=== PATIENT | male | born 1990 | race Caucasian/White ===

== ENCOUNTER 2018-11-04 05:09 | Emergency (ER) | payer OTHER ==
[2018-11-04 05:30] VITALS: BP 116/71; PULSE 70; RESP 18; TEMP 98.4
[2018-11-04] MEDS ORDERED: LIDOCAINE 1% INJ 10MG/ML (20 ML MDV) SQ ONE (05:38)
[2018-11-04] MEDS ORDERED: DIPH,PERTUS(ACELL)TETVAC-LF 0.5 ML VIAL IM ONE (05:52)
--- NOTE | 2018-11-04 05:56 | ED ---
General Adult HPI - General Chief complaint: Wound/Laceration Stated complaint: [facility] laceration on leg Time Seen by Provider: 11/04/18 05:11 Source: patient, RN notes reviewed, old records reviewed Mode of arrival: ambulatory Limitations: no limitations - History of Present Illness Initial comments: 28 male with no significant past medical history presents for evaluation of laceration to the left anterior price. Patient was at work, a steel sheet metal corneal caught on the patient's throat and subsequently lacerated the anterior surface of his left price. There was no metal fragmentation, no concern for foreign body. Patient had dressing applied prior to arrival. No anticoagulation. No other injury. - Related Data Allergies Allergy/AdvReac Type Severity Reaction Status Date / Time No Known Allergies Allergy Verified 11/04/18 05:29 Review of Systems ROS Statement: Those systems with pertinent positive or pertinent negative responses have been documented in the HPI. ROS Other: All systems not noted in ROS Statement are negative. Past Medical History Past Medical History: No Reported History History of Any Multi-Drug Resistant Organisms: None Reported Past Surgical History: Orthopedic Surgery Additional Past Surgical History / Comment(s): left arm surgery, multiple right ear surgeries Past Psychological History: No Psychological Hx Reported Smoking Status: Current every day smoker Past Alcohol Use History: None Reported Past Drug Use History: Marijuana General Exam Limitations: no limitations General appearance: alert, in no apparent distress Head exam: Present: atraumatic, normocephalic Eye exam: Present: normal appearance, PERRL ENT exam: Present: normal exam Neck exam: Present: normal inspection. Absent: tenderness, meningismus Respiratory exam: Present: normal lung sounds bilaterally. Absent: respiratory distress Cardiovascular Exam: Present: regular rate, normal rhythm GI/Abdominal exam: Present: soft. Absent: distended, tenderness Extremities exam: Present: other (3 cm laceration on the anterior mid left price. Partial thickness. No tendon injury.) Course Vital Signs 11/04/18 05:25 Temperature 98.4 F Pulse Rate 70 Respiratory 18 Rate Blood Pressure 116/71 O2 Sat by Pulse 100 Oximetry Procedures - Laceration Laceration #1 Consent Obtained: verbal consent Indication: laceration Site: lower extremity Description: linear Depth: simple, single layer Anesthetic Used: lidocaine 1% Anesthesia Technique: local infiltration Amount (mls): 3 Pre-repair: wound explored, irrigated extensively, deep structures intact Type of Sutures: nylon Size of Sutures: 5-0 Number of Sutures: 4 Technique: simple, interrupted Patient Tolerated Procedure: well Additional Comments: Wound copiously irrigated. Patient neurovascularly intact. No tendon injury. Medical Decision Making - Medical Decision Making 28-year-old male with laceration to the anterior price. This is repaired in the emergency department. Tetanus updated. No concern for pneumonia or melena, no concern for foreign body. Patient discharged home with outpatient follow-up. Please monitor for signs of infection. Please return for suture removal in 10- 14 days. Disposition Clinical Impression: Laceration Disposition: HOME SELF-CARE Condition: Good Instructions (If sedation given, give patient instructions): Laceration (ED), Care For Your Stitches (ED) Additional Instructions: Please monitor for signs of infection, return for suture removal in 10-14 days. Is patient prescribed a controlled substance at d/c from ED?: No Referrals: Kassie Muhammad MD [Primary Care Provider] - 1-2 days Time of Disposition: 05:56
== END 2018-11-04 06:26 | disposition home or self-care (01) ==
LOC: EC 05:09
DX: S81.812A Laceration without foreign body, left lower leg, initial encounter (principal); Z23 Encounter for immunization; F17.200 Nicotine dependence, unspecified, uncomplicated; W26.8XXA Contact with other sharp object(s), not elsewhere classified, initial encounter; Y92.69 Other specified industrial and construction area as the place of occurrence of the external cause; Y99.0 Civilian activity done for income or pay
CPT/HCPCS: 90715; 99283; 12002; 90471; J2001

== ENCOUNTER 2020-01-12 23:24 | Emergency (ER) | payer OTHER ==
[2020-01-12] MEDS ORDERED: PROPARACAINE 0.5% OPHTH DROPS 15 ML BTL LEFT EYE STA (23:36)
[2020-01-12] MEDS ORDERED: FLUORESCEIN STRIPS 1 MG STRIP RIGHT EYE ONE (23:36)
[2020-01-12] MEDS: DIPH,PERTUS(ACELL)TETVAC-LF 0.5 ML VIAL IM ONE ×2 (23:43→23:46)
[2020-01-13] MEDS ORDERED: ERYTHROMYCIN 5 MG/GM OPHTH OINT 3.5 GM TUBE RIGHT EYE STA (01:16)
--- NOTE | 2020-01-13 01:51 | ED ---
General Adult HPI - General Chief complaint: Eye Problems Stated complaint: [facility]HS FB in eye Time Seen by Provider: 01/12/20 23:36 Source: patient, RN notes reviewed, old records reviewed Mode of arrival: ambulatory Limitations: no limitations - History of Present Illness Initial comments: 29-year-old male patient menses for evaluation of foreign body in right eye. Patient reports that he was using a small lower at work to clean off his work station where there is no stating that he felt something go in his eye. Denies any changes in vision. Denies use of contact lenses. Denies any other complaints. Systemic: Pt denies fatigue, fever/chills, rash. Pt denies weakness, night sweats, weight loss. Neuro: Pt denies headache, syncope or pre-syncope. HEENT: Pt denies ocular discharge or irritation, otalgia, rhinorrhea, pharyngitis or notable lymphadenopathy. Cardiopulmonary: Pt denies chest pain, SOB, heart palpitations, dyspnea on e xertion. Abdominal/GI: Pt denies abdominal pain, n/v/d. : Pt denies dysuria, burning w/ urination, frequency/urgency. Denies new onset urinary or bowel incontinence. MSK: Pt denies myalgia, loss of strength or function in extremities. Neuro: Pt denies new onset weakness, paresthesias. - Related Data Allergies Allergy/AdvReac Type Severity Reaction Status Date / Time No Known Allergies Allergy Verified 01/12/20 23:33 Review of Systems ROS Statement: Those systems with pertinent positive or pertinent negative responses have been documented in the HPI. ROS Other: All systems not noted in ROS Statement are negative. Past Medical History Past Medical History: No Reported History History of Any Multi-Drug Resistant Organisms: None Reported Past Surgical History: Orthopedic Surgery Additional Past Surgical History / Comment(s): left arm surgery, multiple right ear surgeries Past Psychological History: No Psychological Hx Reported Smoking Status: Current every day smoker Past Alcohol Use History: None Reported Past Drug Use History: Marijuana General Exam - General Exam Comments Initial Comments: Constitutional: NAD, AOX3, Pt has pleasant affect. HEENT: NC/AT, trachea midline, neck supple, no lymphadenopathy. External ears appear normal, without discharge. Mucous membranes moist. Eyes PERRLA, EOM intact. There is no scleral icterus. No pallor noted. Small foreign body noted to right eye at 7oclock. Removed with sterile q tip and needle. IOP average of 10 bilaterally. Florescein stain revealed small corneal abrasion. Cardiopulmonary: RRR, no murmurs, rubs or gallops, no JVD noted. Lungs CTAB in anterior and posterior jeronimo. No peripheral edema. Neuro: CN II-XII grossly intact. No nuchal rigidity. 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 Use eye ointment half and ribbon of erythromycin every 6 hours. Follow-up with primary care provider in 1-2 days. Return to ER if condition worsens. Is patient prescribed a controlled substance at d/c from ED?: No Referrals: Kassie Muhammad MD [Primary Care Provider] - 1-2 days Lorenza Goncalves MD [STAFF PHYSICIAN] - 1-2 days
[2020-01-13] MEDS ORDERED: ACET/COD 300 MG/30 MG STARTER PACK 6 TAB BTL PO STA (01:55)
[2020-01-13 02:09] VITALS: BP 141/74; PULSE 77; RESP 15; TEMP 98.7
== END 2020-01-13 02:06 | disposition home or self-care (01) ==
LOC: EC 23:24
DX: T15.01XA Foreign body in cornea, right eye, initial encounter (principal); F17.200 Nicotine dependence, unspecified, uncomplicated; Y93.E9 Activity, other interior property and clothing maintenance; Y92.69 Other specified industrial and construction area as the place of occurrence of the external cause; Y99.0 Civilian activity done for income or pay
CPT/HCPCS: 65220; 90715; 99283

== ENCOUNTER 2020-09-23 06:37 | Emergency (ER) | payer OTHER ==
[2020-09-23 06:48] VITALS: BP 119/70; PULSE 63; RESP 18; TEMP 98.5
[2020-09-23] MEDS ORDERED: FLUORESCEIN STRIPS 1 MG STRIP LEFT EYE STA (06:50)
[2020-09-23] MEDS ORDERED: PROPARACAINE 0.5% OPHTH DROPS 15 ML BTL LEFT EYE STA (06:50)
[2020-09-23] MEDS ORDERED: ERYTHROMYCIN 5 MG/GM OPHTH OINT 1 GM TUBE LEFT EYE STA (07:11)
--- NOTE | 2020-09-23 07:23 | ED ---
General Adult HPI - General Chief complaint: Eye Problems Stated complaint: Eye Injury,IHS Time Seen by Provider: 09/23/20 06:50 Source: patient Mode of arrival: ambulatory Limitations: no limitations - History of Present Illness Initial comments: 30-year-old male presents to the emergency room for a chief complaint of left eye irritation. 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 Patient states around 5 hours ago he was at work and noticed he had something in his eye. He states it does feel a little bit irritated. Patient states this has happened before from work. Patient states he is up-to-date on tetanus within the last 1-2 years from a recent laceration. Patient denies visual changes. Denies contact use.Patient has no other complaints at this time including shortness of breath, chest pain, abdominal pain, nausea or vomiting, headache, or visual changes. - Related Data Previous Rx's Medication Instructions Recorded Erythromycin Ophth Oint [Romycin 1 applic RIGHT EYE QID 7 Days #1 gm 09/23/20 Ophth Oint] Allergies Allergy/AdvReac Type Severity Reaction Status Date / Time No Known Allergies Allergy Verified 09/23/20 06:48 Review of Systems ROS Statement: Those systems with pertinent positive or pertinent negative responses have been documented in the HPI. ROS Other: All systems not noted in ROS Statement are negative. Past Medical History Past Medical History: No Reported History History of Any Multi-Drug Resistant Organisms: None Reported Past Surgical History: Orthopedic Surgery Additional Past Surgical History / Comment(s): left arm surgery, multiple right ear surgeries Past Psychological History: No Psychological Hx Reported Smoking Status: Current every day smoker Past Alcohol Use History: None Reported Past Drug Use History: Marijuana General Exam Limitations: no limitations General appearance: alert, in no apparent distress Head exam: Present: atraumatic, normocephalic, normal inspection Eye exam: Present: PERRL, EOMI, conjunctival injection (Erythema noted of the conjunctiva of the left eye), other (Small foreign body noted at about 9:00 of the left eye). Absent: scleral icterus, periorbital swelling ENT exam: Present: normal exam, mucous membranes moist Neck exam: Present: normal inspection, full ROM. Absent: tenderness, meningismus, lymphadenopathy Respiratory exam: Present: normal lung sounds bilaterally. Absent: respiratory distress, wheezes, rales, rhonchi, stridor Cardiovascular Exam: Present: regular rate, normal rhythm, normal heart sounds. Absent: systolic murmur, diastolic murmur, rubs, gallop, clicks GI/Abdominal exam: Present: soft, normal bowel sounds. Absent: distended, tenderness, guarding, rebound, rigid Course Vital Signs 09/23/20 06:43 Temperature 98.5 F Pulse Rate 63 Respiratory 18 Rate Blood Pressure 119/70 O2 Sat by Pulse 96 Oximetry Procedures - Forgein Body Removal Eye Site: Left Anesthetic Used: Proparacaine Eye Exam Technique: Agudelo Lamp Foreign Body Suspected: Metal Forgein Body Removal Technique: Cotton Swab, Irrigation, Algerbrush Remaining Debris: Yes (rust ring) Patient Tolerated: no complications Medical Decision Making - Medical Decision Making Patient does have a foreign body noted in the cornea of the left eye at about 9:00. I attempted to remove this using cotton swab, unsuccessful. I used IV catheter without difficulty. Foreign body was removed. Eye was flushed. Lids were flipped, no remaining foreign bodies. There was remaining rust ring. I did attempt to remove this with an [place] brush. It was only able to remove small amount because of the unexpected depth of the rust ring. The eye was then stained with fluorescein stain and visualized with the Wood's lamp, negative Orville sign. No additional foreign bodies. Visual acuity 20/20 both eyes. At this time patient can be discharged home to follow up with ophthalmology. I did discuss the importance of following up with ophthalmology, he will call today. He will be started on erythromycin ointment. He will return for any worsening symptoms. Disposition Clinical Impression: Corneal foreign body, Corneal rust ring of left eye Disposition: HOME SELF-CARE Condition: Good Instructions (If sedation given, give patient instructions): Eye Foreign Body (ED) Additional Instructions: Please use antibiotic ointment every 6 hours for 7 days. Follow up closely with ophthalmology for rust ring removal. You need to call them today. Return to the emergency room for any worsening symptoms. Prescriptions: Erythromycin Ophth Oint [Romycin Ophth Oint] 1 applic RIGHT EYE QID 7 Days #1 gm Is patient prescribed a controlled substance at d/c from ED?: No Referrals: Kassie Muhammad MD [Primary Care Provider] - 1-2 days Deanne Britt MD [STAFF PHYSICIAN] - 1-2 days Time of Disposition: 07:19
== END 2020-09-23 07:32 | disposition home or self-care (01) ==
LOC: EC 06:37
DX: T15.02XA Foreign body in cornea, left eye, initial encounter (principal); F17.200 Nicotine dependence, unspecified, uncomplicated; W20.8XXA Other cause of strike by thrown, projected or falling object, initial encounter; Y92.69 Other specified industrial and construction area as the place of occurrence of the external cause; Y99.0 Civilian activity done for income or pay
CPT/HCPCS: 65220; 99283

== ENCOUNTER 2020-11-28 14:38 | Emergency (ER) | payer OTHER ==
[2020-11-28 14:47] VITALS: BP 127/52; PULSE 91; RESP 16; TEMP 98.7
[2020-11-28] MEDS ORDERED: PROPARACAINE 0.5% OPHTH DROPS 15 ML BTL RIGHT EYE STA (15:03)
--- NOTE | 2020-11-28 15:19 | ED ---
ENT HPI - General Chief complaint: ENT Stated complaint: eye problem Time Seen by Provider: 11/28/20 14:50 Source: patient Mode of arrival: ambulatory Limitations: no limitations - History of Present Illness Initial comments: Patient is a 30-year-old male presenting to the emergency Department with complaints of irritation to his right eye. Patient states he was driving today around noon when he felt like something flew into his right eye. He states it's been irritated since. He denies any injuries or trauma to his eye. He does not wear contacts. 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 He denies any sharp eye pain, no blurry vision, no vision loss. He has no further complaints. - Related Data Previous Rx's Medication Instructions Recorded Erythromycin Ophth Oint [Romycin 1 applic RIGHT EYE QID 7 Days #1 gm 09/23/20 Ophth Oint] Erythromycin Ophth Oint [Romycin 1 applic RIGHT EYE QID 3 Days #1 11/28/20 Ophth Oint] tube Allergies Allergy/AdvReac Type Severity Reaction Status Date / Time No Known Allergies Allergy Verified 11/28/20 14:47 Review of Systems ROS Statement: Those systems with pertinent positive or pertinent negative responses have been documented in the HPI. ROS Other: All systems not noted in ROS Statement are negative. Past Medical History Past Medical History: No Reported History History of Any Multi-Drug Resistant Organisms: None Reported Past Surgical History: Orthopedic Surgery Additional Past Surgical History / Comment(s): left arm surgery, multiple right ear surgeries Past Psychological History: No Psychological Hx Reported Smoking Status: Current every day smoker Past Alcohol Use History: None Reported Past Drug Use History: Marijuana General Exam - General Exam Comments Initial Comments: GENERAL: Patient is well-developed and well-nourished. Patient is nontoxic and in no acute distress. HEAD: Atraumatic, normocephalic. EYES: Pupils equal round and reactive to light, extraocular movements intact, sclera anicteric, conjunctiva are normal. Eyelids were unremarkable. There is a small black dot, foreign object noted in the right eye, 6 o'clock position. ENT: Nares patent, oropharynx clear without exudates. Moist mucous membranes. NECK: Normal range of motion, supple without lymphadenopathy or JVD. LUNGS: Unlabored respirations. Breath sounds clear to auscultation bilaterally and equal. No wheezes rales or rhonchi. HEART: Regular rate and rhythm without murmurs, rubs or gallops. ABDOMEN: Soft, nontender, normoactive bowel sounds. No guarding, no rebound. No masses appreciated. : Deferred MUSCULOSKELETAL: Normal extremities with adequate strength and normal range of motion, no pitting or edema. No clubbing or cyanosis. NEUROLOGICAL: Patient is alert and oriented x 3. Motor and sensory are also intact. Cranial nerves II through XII grossly intact. Symmetrical smile. Normal speech, normal gait. PSYCH: Normal mood, normal affect. SKIN: Warm, Dry, normal turgor, no rashes or lesions noted. Limitations: no limitations Course Vital Signs 11/28/20 14:45 Temperature 98.7 F Pulse Rate 91 Respiratory 16 Rate Blood Pressure 127/52 O2 Sat by Pulse 97 Oximetry Procedures - Forgein Body Removal Eye Site: Right Anesthetic Used: Proparacaine Foreign Body Suspected: Other Forgein Body Removal Technique: Cotton Swab Remaining Debris: No Patient Tolerated: well Medical Decision Making - Medical Decision Making Patient is a 22-year-old male here for irritation of his right eye. He feels like there is a foreign body and the right eye for the last few hours. He states he felt like something flew in his eye when he was driving or could be from the steel factory he works in. Exam revealed a very small black foreign object in the 6 o'clock position of the right eye. I did use proparacaine, easily removed with a cotton swab. No other abnormality on exam. Patient will be given antibiotic ointment for abrasion to the eye. He is stable for discharge and he is in agreement with this plan of care. Follow up with his eye doctor symptoms persist. Disposition Clinical Impression: Foreign body of right eye Disposition: HOME SELF-CARE Condition: Stable Instructions (If sedation given, give patient instructions): Eye Foreign Body (ED) Additional Instructions: Please return to the Emergency Department if symptoms worsen or any other concerns. Use antibiotic ointment for 3 days as prescribed. Follow-up with your eye doctor if symptoms persist. Prescriptions: Erythromycin Ophth Oint [Romycin Ophth Oint] 1 applic RIGHT EYE QID 3 Days #1 tube Is patient prescribed a controlled substance at d/c from ED?: No Referrals: None,Stated [Primary Care Provider] - 1-2 days Time of Disposition: 15:19
== END 2020-11-28 15:29 | disposition home or self-care (01) ==
LOC: EC 14:38
DX: T15.91XA Foreign body on external eye, part unspecified, right eye, initial encounter (principal); F17.200 Nicotine dependence, unspecified, uncomplicated
CPT/HCPCS: 65220; 99282

== ENCOUNTER 2020-12-31 17:55 | Emergency (ER) | payer OTHER ==
[2020-12-31 17:59] VITALS: TEMP 97.8
[2020-12-31] MEDS ORDERED: KETOROLAC 15 MG/ML 1 ML VIAL IVP STA (18:11)
--- NOTE | 2020-12-31 18:18 | ED ---
Chest Pain HPI - General Chief Complaint: Chest Pain Stated Complaint: chest pain Time Seen by Provider: 12/31/20 17:58 Source: patient, RN notes reviewed Mode of arrival: ambulatory Limitations: no limitations - History of Present Illness Initial Comments: This is a 30-year-old male with a benign past medical history who does smoke about 1 pack cigarettes per day who states he had the onset about one week ago been intermittent episodes of upper chest and shoulder pain. He states that sharp and aching nature it is at the worst moderate in severity he has some shortness of breath sometimes with him without it. He has no known heart or lung disease no cough fevers chills nausea vomiting sweats no family history of any heart disease at early age. No other current complaints or modifying factors. 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 is right-handed Complaint: chest pain - Related Data Previous Rx's Medication Instructions Recorded Erythromycin Ophth Oint [Romycin 1 applic RIGHT EYE QID 7 Days #1 gm 09/23/20 Ophth Oint] Erythromycin Ophth Oint [Romycin 1 applic RIGHT EYE QID 3 Days #1 11/28/20 Ophth Oint] tube Ibuprofen 800 mg PO Q6HR PRN #20 tablet 12/31/20 Orphenadrine [Norflex] 100 mg PO Q12H #7 tablet.er 12/31/20 Allergies Allergy/AdvReac Type Severity Reaction Status Date / Time No Known Allergies Allergy Verified 12/31/20 17:59 Review of Systems ROS Statement: Those systems with pertinent positive or pertinent negative responses have been documented in the HPI. ROS Other: All systems not noted in ROS Statement are negative. EKG Findings - EKG Results: EKG: interpreted by MALCOM LEE, sinus rhythm, normal axis, normal QRS, normal ST/T, no acute changes (Normal-appearing EKG ventricular rate 67 ID interval 156 QRS 96 QT since QTC 386/407) Past Medical History Past Medical History: No Reported History History of Any Multi-Drug Resistant Organisms: None Reported Past Surgical History: Orthopedic Surgery Additional Past Surgical History / Comment(s): left arm surgery, multiple right ear surgeries Past Psychological History: No Psychological Hx Reported Smoking Status: Current every day smoker Past Alcohol Use History: None Reported Past Drug Use History: Marijuana General Exam - General Exam Comments Initial Comments: This is a well-developed asthenic appearing male was awake alert oriented 3 Limitations: no limitations General appearance: alert, in no apparent distress Head exam: Present: atraumatic, normocephalic, normal inspection Eye exam: Present: normal appearance, PERRL, EOMI. Absent: scleral icterus, conjunctival injection, periorbital swelling ENT exam: Present: normal exam, mucous membranes moist Neck exam: Present: normal inspection, full ROM, other (No stridor JVD or bruits). Absent: tenderness, meningismus, lymphadenopathy Respiratory exam: Present: normal lung sounds bilaterally, chest wall tenderness (Reproducible tenderness to palpation along the upper chest wall and anterior shoulders bilaterally). Absent: respiratory distress, wheezes, rales, rhonchi, stridor Cardiovascular Exam: Present: regular rate, normal rhythm, normal heart sounds. Absent: systolic murmur, diastolic murmur, rubs, gallop, clicks GI/Abdominal exam: Present: soft, normal bowel sounds. Absent: distended, tenderness, guarding, rebound, rigid Extremities exam: Present: normal inspection, full ROM, normal capillary refill. Absent: tenderness, pedal edema, joint swelling, calf tenderness Back exam: Present: normal inspection Neurological exam: Present: alert, oriented X3, CN II-XII intact Psychiatric exam: Present: normal affect, normal mood Skin exam: Present: warm, dry, intact, normal color. Absent: rash Course Vital Signs 12/31/20 12/31/20 12/31/20 17:57 18:30 19:22 Temperature 97.8 F Pulse Rate 75 70 53 L Respiratory 18 18 16 Rate Blood Pressure 121/76 88/68 104/66 O2 Sat by Pulse 99 100 100 Oximetry - Reevaluation(s) Reevaluation #1: 12/31/20 18:18 The patient did have a apparent vagal episode during the IV start. Chest Pain MDM - MDM Reevaluation patient finds he is feeling improved at this time. X-rays are negative. The presentation is consistent with a musculoskeletal origin of the chest pain. He did have a long discussion regarding the findings patient be placed on appropriate medication he will be discharged. Disposition Clinical Impression: Costochondritis, Chest wall syndrome Disposition: HOME SELF-CARE Condition: Good Instructions (If sedation given, give patient instructions): Costochondritis (ED) Prescriptions: Ibuprofen 800 mg PO Q6HR PRN #20 tablet PRN Reason: Pain Orphenadrine [Norflex] 100 mg PO Q12H #7 tablet.er Is patient prescribed a controlled substance at d/c from ED?: No Referrals: None,Stated [Primary Care Provider] - 1-2 days
[2020-12-31 18:32] LABS: Glucose,Whole Blood 113 mg/dL (75-99)
[2020-12-31 18:34] LABS: Basophils # (A) 0.1 k/uL (0-0.2); Basophils % (A) 1 %; Eosinophils # (A) 0.8 k/uL (0-0.7); Eosinophils % (A) 6 %; HCT 45.5 % (39.0-53.0); HGB 15.6 gm/dL (13.0-17.5); Lymphocytes # (A) 3.1 k/uL (1.0-4.8); Lymphocytes % (A) 22 %; MCH 31.2 pg (25.0-35.0); MCHC 34.3 g/dL (31.0-37.0); Mean Platelet Volume 10.7; Monocytes # (A) 0.8 k/uL (0-1.0); Monocytes % (A) 6 %; Neutrophils # (A) 9.3 k/uL (1.3-7.7); Neutrophils % (A) 65 %; Platelet Count 179 k/uL (150-450); RDW 12.2 % (11.5-15.5); WBC 14.2 k/uL (3.8-10.6)
[2020-12-31 18:50] LABS: ALT 26 U/L (4-49); AST 35 U/L (17-59); African American GFR (CKD) >90 (>60 ml/min/1.73 sqM); Albumin 4.4 g/dL (3.5-5.0); Alkaline Phosphatase 49 U/L (38-126); Anion Gap 7 mmol/L; Blood Urea Nitrogen 9 mg/dL (9-20); Calcium 9.6 mg/dL (8.4-10.2); Carbon Dioxide 29 mmol/L (22-30); Chloride 102 mmol/L (98-107); Creatine Kinase 97 U/L (55-170); Glucose 101 mg/dL (74-99); Magnesium 1.8 mg/dL (1.6-2.3); Non-African American GFR(CKD) >90 (>60 ml/min/1.73 sqM); Potassium 3.8 mmol/L (3.5-5.1); Sodium 138 mmol/L (137-145); Total Bilirubin 0.5 mg/dL (0.2-1.3); Total Protein 6.4 g/dL (6.3-8.2)
--- NOTE | 2020-12-31 18:53 | XR ---
EXAMINATION TYPE: XR chest 2V DATE OF EXAM: 12/31/2020 COMPARISON: 10/30/2011. HISTORY: Chest pain. TECHNIQUE: Frontal and lateral views of the chest are obtained. FINDINGS: There is no focal air space opacity, pleural effusion, or pneumothorax seen. The cardiac silhouette size is within normal limits. The osseous structures are intact. IMPRESSION: No acute cardiopulmonary process.
[2020-12-31 18:56] LABS: D-Dimer <0.17 mg/L FEU (<0.60); INR 1.1 (<1.2); Partial Thromboplastin Time 23.7 sec (22.0-30.0); Prothrombin Time 11.5 sec (9.0-12.0)
[2020-12-31 19:23] VITALS: PULSE 53
[2020-12-31 19:51] VITALS: BP 102/62; RESP 18
== END 2020-12-31 19:51 | disposition home or self-care (01) ==
LOC: EC 17:55
DX: M94.0 Chondrocostal junction syndrome [Tietze] (principal); F17.200 Nicotine dependence, unspecified, uncomplicated; F12.90 Cannabis use, unspecified, uncomplicated
CPT/HCPCS: 36415; 93005; 85379; 83880; 80053; 82550; 83735; 84484; 85025; 85610; 85730; 71046; 99285; 96374; J1885

== ENCOUNTER → 2022-04-19 | Outpatient (CLI) | payer OTHER ==
--- NOTE | 2022-04-20 08:49 | US ---
EXAMINATION TYPE: US thyroid st tissue head/neck DATE OF EXAM: 04/19/2022 COMPARISON: NONE CLINICAL HISTORY: R59.0 ANTERIOR CERVICAL ADENOPATHY. 2 lumps left neck multiple lymph nodes left neck, largest = 2.0 x 0.5 x 0.9cm IMPRESSION: 1. Multiple left neck nodes. CT soft tissue neck performed the additional workup would be of benefit.
--- NOTE | 2022-04-20 08:50 | US ---
EXAMINATION TYPE: US groin RT DATE OF EXAM: 04/19/2022 COMPARISON: None at this location. CLINICAL HISTORY: R19.09 LUMP IN GROIN. Lump right groin for 6-7 months, getting smaller Lymph nodes right groin, largest = 1.7 x 0.5 x 1.4cm IMPRESSION: 1. Right inguinal lymph node
== END | disposition home or self-care (01) ==
LOC: RADUSWWP 15:23
PROVIDERS: ATTEND Internal Medicine
DX: R19.09 Other intra-abdominal and pelvic swelling, mass and lump (principal)
CPT/HCPCS: 76536

== ENCOUNTER → 2022-04-27 | Outpatient (CLI) | payer OTHER ==
--- NOTE | 2022-04-27 13:03 | CT ---
EXAMINATION TYPE: CT soft tissue neck w con DATE OF EXAM: 04/27/2022 11:51 AM COMPARISON: None HISTORY: Enlarged lymph nodes CT DLP: 429 mGycm Automated exposure control for dose reduction was used. CONTRAST: CT scan of the neck is performed following with IV Contrast, patient injected with 70 ml mL of Isovue 300. Axial images are obtained, coronal and sagittal reformatted images are reviewed. Findings: The thyroid gland is not enlarged and there are no focal masses. The larynx including the thyroid, arytenoid, cricoid cartilages as well as the vocal cords are normal and symmetric without laryngeal mass. The tongue base, epiglottis, aryepiglottic folds, piriform sinuses and vallecula are normal and symme tric. There is no oral or nasal pharyngeal or parapharyngeal or pharyngeal soft tissue mass or enhancement. The submandibular glands and parotid glands are normal and symmetric. The great vessels of the neck are normal. There is no adenopathy or abscess within the neck. Visualized osseous structures are intact. IMPRESSION: No significant abnormality seen. Mild chronic inflammatory change in the right maxillary sinus.
== END | disposition home or self-care (01) ==
LOC: RADCTMAIN 11:19
PROVIDERS: ATTEND Internal Medicine
DX: J32.0 Chronic maxillary sinusitis (principal)
CPT/HCPCS: 70491; Q9967

== ENCOUNTER → 2024-01-07 | Outpatient (CLI) | payer OTHER ==
--- NOTE | 2024-01-07 16:04 | US ---
EXAMINATION TYPE: US groin RT DATE OF EXAM: 01/07/2024 COMPARISON: 04/19/2022 CLINICAL INDICATION: Male, 33 years old with history of R10.31 RT GROIN PAIN; Patient has felt lump x a couple months within the right groin. TECHNIQUE: Scanned right groin at patient's area of concern. FINDINGS: Lesion in the area of patient's concern possibly flattened lymph node given prior imaging showing a lymph node in this area. Area seen at patient's area of concern: 2.4 x 1.1 x 0.3 cm. IMPRESSION: Lesion in the area of patient's concern possibly flattened lymph node given prior imaging showing a lymph node in this area. Consider palpable marker placement with CT pelvis for confirmatio n.
== END | disposition home or self-care (01) ==
LOC: RADUSWWP 14:46
PROVIDERS: ATTEND Family Medicine
DX: R10.31 Right lower quadrant pain (principal)

== ENCOUNTER → 2024-01-13 | Outpatient (CLI) | payer OTHER ==
--- NOTE | 2024-01-13 12:45 | CT ---
EXAMINATION TYPE: CT pelvis w con CT DLP: 391 mGycm, Automated exposure control for dose reduction was used. DATE OF EXAM: 01/13/2024 9:24 AM COMPARISON: 01/07/2024 CLINICAL INDICATION:Male, 33 years old with history of R10.31 Right groin pain R19.09 right groin mas s; RT groin pain, RT groin mass TECHNIQUE: Axial CT pelvis w con;Sagittal and coronal reformats were created on a separate workstati on. Contrast used:100 mL of Isovue 300 with IV Contrast, (none if empty) Oral contrast used: without Oral Contrast (none if empty) FINDINGS: BLADDER: Unremarkable REPRODUCTIVE: Unremarkable. ABDOMEN & PELVIS STOMACH AND BOWEL: No evidence of bowel obstruction. PERITONEUM/RETROPERITONEUM: No evidence of pneumoperitoneum or free fluid. VASCULATURE: No evidence of aortic aneurysm. MUSCULOSKELETAL: No acute osseous abnormalities LYMPH NODES: No gross evidence for lymphadenopathy. SOFT TISSUE/ABDOMINAL WALL: No palpable marker was placed no suspicious masses or organizing fluid co llections identified no enlarged lymph nodes. IMPRESSION: No palpable marker was placed as recommended on prior ultrasound 01/07/2024. No evidence of acute process. No evidence for mass or lymphadenopathy. No inguinal hernia. No acute p elvic process.
== END | disposition home or self-care (01) ==
LOC: RADCTMAIN 08:45
PROVIDERS: ATTEND Family Medicine
DX: R10.31 Right lower quadrant pain (principal); R19.09 Other intra-abdominal and pelvic swelling, mass and lump
CPT/HCPCS: 72193; Q9967

== ENCOUNTER 2024-05-06 22:17 | Emergency (ER) | payer OTHER ==
[2024-05-06 22:23] VITALS: RESP 18
[2024-05-06] MEDS: ACETAMINOPHEN TAB 325 MG TAB PO STA (23:34)
[2024-05-06] MEDS: IBUPROFEN 600 MG TAB PO STA (23:34)
[2024-05-07 01:07] VITALS: TEMP 97.8
--- NOTE | 2024-05-07 01:21 | US ---
EXAM: US Abdomen Limited CLINICAL HISTORY: US Reason: painful mass TECHNIQUE: Real-time ultrasound of the abdomen with image documentation. COMPARISON: No relevant prior studies available. FINDINGS: Soft tissues: There is a smooth oval structure in the subcutaneous tissues of the right groin measuring 5 mm short axis diameter consistent with a lymph node. No hernia is identified. IMPRESSION: There is a smooth oval structure in the subcutaneous tissues of the right groin measuring 5 mm short axis diameter consistent with a lymph node. No abnormal fluid collection is seen.
--- NOTE | 2024-05-07 01:58 | ED ---
Male Urogenital HPI - General Chief complaint: Urogenital Stated complaint: Lump on Groin Time Seen by Provider: 05/06/24 22:28 Source: patient Mode of arrival: ambulatory - History of Present Illness Initial comments: 33-year-old transgender female presenting with chief complaint of right groin pain. Patient reports a painful bump to the right groin. It has been there for the last week. Pain comes and goes can get up to an 8 out of 10. Patient has had a bump similar to this previously, had ultrasound and CT performed which only showed enlarged lymph node. No fever. No dysuria or discharge. No abdominal pain. - Related Data Previous Rx's Medication Instructions Recorded Erythromycin Ophth Oint [Romycin 1 applic RIGHT EYE QID 7 Days #1 gm 09/23/20 Ophth Oint] Erythromycin Ophth Oint [Romycin 1 applic RIGHT EYE QID 3 Days #1 11/28/20 Ophth Oint] tube Ibuprofen 800 mg PO Q6HR PRN #20 tablet 12/31/20 Orphenadrine [Norflex] 100 mg PO Q12H #7 tablet.er 12/31/20 Cephalexin [Keflex] 500 mg PO Q6HR 7 Days #28 cap 05/07/24 Sulfamethox-Tmp 800-160Mg [Bactrim 1 tab PO Q12HR 7 Days #14 tab 05/07/24 DS 800-160 mg] Allergies Allergy/AdvReac Type Severity Reaction Status Date / Time No Known Allergies Allergy Verified 12/31/20 17:59 Review of Systems ROS Statement: Those systems with pertinent positive or pertinent negative responses have been documented in the HPI. ROS Other: All systems not noted in ROS Statement are negative. Past Medical History Past Medical History: No Reported History Additional Past Medical History / Comment(s): hrt History of Any Multi-Drug Resistant Organisms: None Reported Past Surgical History: Orthopedic Surgery Additional Past Surgical History / Comment(s): left arm surgery, multiple right ear surgeries Past Psychological History: No Psychological Hx Reported Smoking Status: Current every day smoker Past Alcohol Use History: None Reported Past Drug Use History: Marijuana General Exam General appearance: alert, in no apparent distress Head exam: Present: atraumatic, normocephalic, normal inspection Eye exam: Present: normal appearance, EOMI Neck exam: Present: normal inspection. Absent: meningismus Respiratory exam: Absent: respiratory distress Cardiovascular Exam: Present: regular rate exam: Present: other (Tender swollen bump just superior to the genitals) Neurological exam: Present: alert, oriented X3 Psychiatric exam: Present: normal affect, normal mood Skin exam: Present: warm, dry Course Vital Signs 05/06/24 05/07/24 05/07/24 22:18 01:06 02:08 Temperature 98.0 F 97.8 F 97.8 F Pulse Rate 117 H 78 89 Respiratory 18 18 18 Rate Blood Pressure 117/75 118/78 122/82 O2 Sat by Pulse 98 98 99 Oximetry Medical Decision Making - Medical Decision Making Was pt. sent in by a medical professional or institution (, PA, UNIFOR[employer] SALES REPRESENTATIVE, urgent care, hospital, or usp...) When possible be specific @ -No Did you speak to anyone other than the patient for history (EMS, parent, family, police, friend...)? What history was obtained from this source @ -No Did you review nursing and triage notes (agree or disagree)? Why? @ -I reviewed and agree with nursing and triage notes Were old charts reviewed (outside hosp., previous admission, EMS record, old EKG, old radiological studies, urgent care reports/EKG's, usp records)? Report findings @ -No old charts were reviewed Differential Diagnosis (chest pain, altered mental status, abdominal pain women, abdominal pain men, vaginal bleeding, weakness, fever, dyspnea, syncope, headache, dizziness, GI bleed, back pain, seizure, CVA, palpatations, mental health, musculoskeletal)? @ -Differential includes abscess, cyst, cellulitis, enlarged lymph node, this is not an all-inclusive list EKG interpreted by me (3pts min.). @ -As above X-rays interpreted by me (1pt min.). @ -None done CT interpreted by me (1pt min.). @ -None done U/S interpreted by me (1pt. min.). @ -Ultrasound shows smooth oval structure in the subcutaneous tissues of the right groin measuring 5 mm short axis diameter consistent with a lymph node. No abnormal fluid collection is seen. What testing was considered but not performed or refused? (CT, X-rays, U/S, labs)? Why? @ -None What meds were considered but not given or refused? Why? @ -None Did you discuss the management of the patient with other professionals (professionals i.e. Dr., PA, [employer] SALES REPRESENTATIVE, lab, RT, psych nurse, social insurance analyst, care mgr, teacher, hospital security officer, case resolution specialist)? Give summary @ -No Was smoking cessation discussed for >3mins.? @ -No Was critical care preformed (if so, how long)? @ -No Were there social determinants of health that impacted care today? How? (Homelessness, low income, unemployed, alcoholism, drug addiction, transportation, low edu. Level, literacy, decrease access to med. care, group home, rehab)? @ -No Was there de-escalation of care discussed even if they declined (Discuss DNR or withdrawal of care, Hospice)? DNR status @ -No What co-morbidities impacted this encounter? (DM, HTN, Smoking, COPD, CAD, Cancer, CVA, ARF, Chemo, Hep., AIDS, mental health diagnosis, sleep apnea, morbid obesity)? @ -None Was patient admitted / discharged? Hospital course, mention meds given and route, prescriptions, significant lab abnormalities, going to OR and other pertinent info. @ -33-year-old transgender female presenting with chief complaint of painful bump to the groin on the right side. On exam this is a slightly erythematous and fluctuant mass. Ultrasound shows enlarged lymph node with no abnormal fluid collection. Patient will be started on Keflex and Bactrim. Educated on today's findings and treatment plan. Discharged. Follow-up with PCP. Report back to ER with any new or worsening symptoms. Discussed return parameters and answered all questions. Patient conveyed verbal understanding and agreed to the plan. I discussed this case in detail with my attending Dr. Del Castillo Undiagnosed new problem with uncertain prognosis? @ -No Drug Therapy requiring intensive monitoring for toxicity (Heparin, Nitro, Insulin, Cardizem)? @ -No Were any procedures done? @ -No Diagnosis/symptom? @ -Enlarged lymph node Acute, or Chronic, or Acute on Chronic? @ -Acute Uncomplicated (without systemic symptoms) or Complicated (systemic symptoms)? @ -Uncomplicated Side effects of treatment? @ -No Exacerbation, Progression, or Severe Exacerbation? @ -No Poses a threat to life or bodily function? How? (Chest pain, [place], MS, pneumonia, PE, COPD, DKA, ARF, appy, cholecystitis, CVA, Diverticulitis, Homicidal, Suicidal, threat to staff... and all critical care pts) @ -Unlikely Disposition Clinical Impression: Enlarged lymph node Disposition: HOME SELF-CARE Condition: Good Instructions (If sedation given, give patient instructions): Lymphadenopathy (ED) Additional Instructions: Follow-up with your PCP. Report back to ER with any new or worsening symptoms. Take medication as prescribed. Prescriptions: Sulfamethox-Tmp 800-160Mg [Bactrim DS 800-160 mg] 1 tab PO Q12HR 7 Days #14 tab Cephalexin [Keflex] 500 mg PO Q6HR 7 Days #28 cap Is patient prescribed a controlled substance at d/c from ED?: No Referrals: Cooper Gaviria MD [Primary Care Provider] - 1-2 days Time of Disposition: 01:57
[2024-05-07] MEDS: CEPHALEXIN 500 MG CAP PO STA (02:06)
[2024-05-07] MEDS: SULFAMETHOX-TMP 800-160MG 1 EACH TAB PO STA (02:06)
[2024-05-07 02:09] VITALS: BP 122/82; PULSE 89
== END 2024-05-07 02:08 | disposition home or self-care (01) ==
LOC: EC 22:17
CPT/HCPCS: 99284